=== PATIENT | female | born 1995 | race Hispanic/Latino ===

== ENCOUNTER 2018-12-27 09:15 | Emergency (ER) | payer MEDICAID, OTHER ==
[2018-12-27 10:23] LABS: APPEARANCE,URINE Clear (CLEAR); BILIRUBIN,URINE Negative (NEGATIVE); COLOR,URINE Yellow (YELLOW); GLUCOSE, URINE (UA) Negative (NEGATIVE); KETONES,URINE Negative (NEGATIVE); LEUKOCYTE ESTERASE ,URINE Trace (NEGATIVE); NITRATE,URINE Negative (NEGATIVE); OCCULT BLOOD,URINE Negative (NEGATIVE); PH,URINE >=9.0 (5.0-8.0); PROTEIN,URINE Trace mg/dL (NEGATIVE)
[2018-12-27] MEDS ORDERED: KETOROLAC TROMETHAMINE 30MG/ML ONE (10:23)
[2018-12-27] MEDS ORDERED: ONDANSETRON ODT 4 MG TAB ONE (10:23)
[2018-12-27 10:26] LABS: HCG,QUAL RESULT NEGATIVE (NEGATIVE)
[2018-12-27 11:14] LABS: BACTERIA,URINE Rare /HPF (None Seen); MUCUS,URINE Few LPF (None Seen); RBC,URINE 0-1 /HPF (0-1); SQUAMOUS EPITHELIAL CELL,UR Rare /HPF (0-2); WBC,URINE 0-1 /HPF (0-1)
== END 2018-12-27 11:07 | disposition home or self-care (01) ==
LOC: EDH 09:15
DX: K52.9 Noninfective gastroenteritis and colitis, unspecified (principal)
CPT/HCPCS: 81001; 81025; 96372; 99283; J1885